=== PATIENT | female | born 1965 | race African-American/Black ===

== ENCOUNTER 2018-12-30 21:22 | Emergency (ER) | payer SELFPAY ==
[~2018-12-30] VITALS: Ht 162.6 cm; Wt 123.4 kg
[2018-12-30 21:29] VITALS: BP 154/83
== END 2018-12-30 21:42 | disposition left against medical advice (07) ==
LOC: ER 21:26
DX: R51 Headache (principal); M54.2 Cervicalgia; Z53.21 Procedure and treatment not carried out due to patient leaving prior to being seen by health care provider

== ENCOUNTER 2018-12-31 17:29 | Inpatient (IN) | payer MEDICAID, OTHER ==
[~2018-12-31] VITALS: Ht 162.6 cm; Wt 122.5 kg
[2018-12-31 18:18] LABS: Basophils # (auto) 0 uL; Eosinophils # (auto) 0.1 uL; Hemoglobin 12.9 g/dL (12.2-16.2); Mean Corpuscular Hemoglobin 25.8 pg (28.0-32.0); Mean Corpuscular Hgb Conc. 31.9 g/dL (32.0-36.0); Monocytes # (auto) 0.4 uL; Neutrophils # (auto) 4.2 uL; Red Blood Cells 4.99 10^6/uL (4.0-5.20)
[2018-12-31 18:20] LABS: Basophils % (auto) 0.3 % (0.0-2.0); Eosinophils % (auto) 1.8 % (0.0-7.0); Hematocrit 40.4 % (36.0-46.0); Lymphocytes # (auto) 1.8 uL; Lymphocytes % (auto) 27.5 % (10.0-50.0); Mean Corpuscular Volume 80.9 fL (80.0-100.0); Monocytes % (auto) 6.4 % (0.0-12.0); Platelet Count (auto) 293 10^3/uL (140-450); Red Cell Distribution Width 17.8 % (11.8-14.3); White Blood Cell 6.6 10^3/uL (4.4-10.8)
[2018-12-31 18:32] LABS: Alanine Aminotransferase 14 U/L (13-56); Albumin 2.9 g/dL (3.4-5.0); Amylase 63 U/L (25-115); Anion Gap 5 (5-15); Aspartate Aminotransferase 12 U/L (15-37); BUN/Creatinine Ratio 11.4; Blood Urea Nitrogen 16 mg/dL (7-18); Calcium 8.4 mg/dL (8.5-10.1); Carbon Dioxide 28 mmol/L (21-32); Chloride 108 mmol/L (98-107); GFR African American 51 mL/min; GFR Non-African American 42 mL/min; Glucose 120 mg/dL (74-106); Lipase 113 U/L (73-393); Potassium 3.7 mmol/L (3.5-5.1); Sodium 141 mmol/L (136-145)
[2018-12-31 18:56] LABS: Alkaline Phosphatase 120 U/L (45-117); Bilirubin, Total 0.2 mg/dL (0.2-1.0)
[2018-12-31 18:57] LABS: Total Protein 8.4 g/dL (6.4-8.2)
[2018-12-31] MEDS ORDERED: cloNIDine HCL 0.1 MG TAB PO ONE (19:00)
[2018-12-31] MEDS ORDERED: HYDROcodone-ACET 10/325MG TAB PO ONE (19:15)
[2018-12-31] MEDS ORDERED: IBUPROFEN 800 MG TAB PO ONE (19:45)
[2018-12-31] MEDS ORDERED: VANCOMYCIN 1GM/250ML 250 ML IV ONE (20:45)
[2019-01-01] VITALS (7 sets, daily range): BP systolic 142–168; BP diastolic 71–92
[2019-01-01] MEDS ORDERED: HYDROcodone-ACET 5/325MG TAB PO PRN
[2019-01-01] MEDS ORDERED: ONDANSETRON HCL 4 MG/2 ML VIAL IV PRN
[2019-01-01] MEDS ORDERED: ACETAMINOPHEN 500 MG TAB PO PRN
[2019-01-01] MEDS ORDERED: MORPHINE SULF INJ 2 MG/ML SYRINGE 1ML IV PRN
[2019-01-01] MEDS ORDERED: cloNIDine HCL 0.1 MG TAB PO PRN (01:30)
--- NOTE | 2019-01-01 01:47 | NUR ---
MS admit from [facility] admitted to MS after SBAR received. Patient oriented to AWAIS ORTIZ, primary RN, unit, room, bed, and unit policies regarding patient care and visiting hours. Patient weighed by bed scale and encouraged to call if they need something. PATIENT ADAMANTLY REFUSED TO ANSWER ADMIT QUESTIONS OR ANY OTHER PROCEDURES AT THIS TIME. REFUSED BELONGINGS TO BE CHECKED. PATIENT WANTS TO GO TO SLEEP. WE WILL CHECK BACK ON HER BEFORE 7 AM PER PATIENT.
--- NOTE | 2019-01-01 07:58 | NUR ---
Patient sitting on bed, refused breakfast, requested turkey sandwich, boiled eggs and avocado. Patient denies pain, stated she wants to go home. Explained to patient we're waiting for the doctor to come over. Patient verbalized understanding.
--- NOTE | 2019-01-01 08:00 | NUR ---
Request for turkey sandwich, boiled eggs and avocado sent via fax to [facility].
[2019-01-01 08:11] LABS: Hematocrit 37.5 % (36.0-46.0); Hemoglobin 11.9 g/dL (12.2-16.2); Mean Corpuscular Hemoglobin 25.5 pg (28.0-32.0); Mean Corpuscular Hgb Conc. 31.6 g/dL (32.0-36.0); Mean Corpuscular Volume 80.7 fL (80.0-100.0); Platelet Count (auto) 261 10^3/uL (140-450); Red Blood Cells 4.65 10^6/uL (4.0-5.20); Red Cell Distribution Width 17.6 % (11.8-14.3); White Blood Cell 6.3 10^3/uL (4.4-10.8)
[2019-01-01 08:13] LABS: Band Neutrophils % (manual) 0; Basophils % (manual) 0 (0.0-2.0); Blast Cells 0; Metamyelocytes % 0; Myelocytes % 0; Promyelocytes % 0; Reactive Lymphocytes 0
[2019-01-01 08:25] LABS: Anion Gap 8 (5-15); BUN/Creatinine Ratio 12.8; Blood Urea Nitrogen 17 mg/dL (7-18); Calcium 7.9 mg/dL (8.5-10.1); Carbon Dioxide 20 mmol/L (21-32); Chloride 112 mmol/L (98-107); GFR African American 54 mL/min; GFR Non-African American 45 mL/min; Glucose 111 mg/dL (74-106); Potassium 4.4 mmol/L (3.5-5.1); Sodium 140 mmol/L (136-145)
[2019-01-01 09:59] LABS: Eosinophils % (manual) 2 (0-7); Lymphocytes % (manual) 32 (10.0-50.0); Monocytes % (manual) 4 (0-12)
[2019-01-01] MEDS ORDERED: HCTZ 25 MG TAB PO SCH (10:00)
--- NOTE | 2019-01-01 10:18 | NUR ---
Apple juice, cranberry juice and franklin crackers provided as requested by the patient. [place] sandwich not available.
--- NOTE | 2019-01-01 10:20 | NUR ---
Patient complained that she's hungry, turkey sandwich has not been given to her yet. Explained to patient I already sent a request via Fax to the [facility]. Patient to call [facility] via [facility].
--- NOTE | 2019-01-01 10:25 | NUR ---
Called [facility]. Phone on voicemail. Left a message of patient's food request.
--- NOTE | 2019-01-01 13:23 | NUR ---
Patient stated she has headache. Tylenol PO given for headache as ordered.
--- NOTE | 2019-01-01 14:27 | NUR ---
Dr. Aldrich at bedside. spoke with the patient. Patient denies abdominal pain, requested doctor's notes to give to her employer, she wants to go back to work on 01/03/2019.
[2019-01-01] MEDS ORDERED: LEVOFLOXACIN 500 MG TAB PO ONE (14:30)
--- NOTE | 2019-01-01 16:00 | NUR ---
Sister came over to sheepskin pickler the patient. Patient refused to sign the discharge papers at this time, stated she will sign it later.
--- NOTE | 2019-01-01 16:54 | NUR ---
Patient asked to have her blood pressure checked before discharge.
--- NOTE | 2019-01-01 16:55 | NUR ---
BP = 168/87, Heart Rate = 75. Patient stated she's not on blood pressure medications at home. Dr. Aldrich made aware. prescribed Metoprolol tartrate 25 mg PO twice a day #60.
--- NOTE | 2019-01-01 17:05 | NUR ---
Explained to patient that as per doctor's orders; she has to have blood pressure monitor, check her blood pressure twice a day before taking Metoprolol 25 mg, if Systolic Blood Pressure is below 120, she has to skip the medication, she has to take down notes on her blood pressure twice a day daily and inform her primary physician on her follow up appointment. Patient verbalized understanding. IV line on the right hand removed, IV catheter intact, pressure dressing applied. Family member at bedside.
--- NOTE | 2019-01-01 17:20 | NUR ---
Patient is discharged. Sister at bedside.
== END 2019-01-01 18:20 | disposition home or self-care (01) | DRG 244 ==
LOC: ER 17:29 → OVERFLOW 01-01 → WEST WING 01-01 03:08
PROVIDERS: ADMIT Nurse Practitioner Family; ATTEND Nurse Practitioner Family
DX: K57.32 Diverticulitis of large intestine without perforation or abscess without bleeding (principal); E44.0 Moderate protein-calorie malnutrition; N18.3 Chronic kidney disease, stage 3 (moderate); I12.9 Hypertensive chronic kidney disease with stage 1 through stage 4 chronic kidney disease, or unspecified chronic kidney disease; E66.9 Obesity, unspecified; Z68.42 Body mass index [BMI] 45.0-49.9, adult; Z88.0 Allergy status to penicillin
CPT/HCPCS: 36415; 74176; 80048; 80053; 82150; 83605; 83690; 84484; 85007; 85025; 85027; 87040; 93005; 96365; G0378

== ENCOUNTER 2019-02-26 12:23 | Emergency (ER) | payer MEDICAID ==
[~2019-02-26] VITALS: Ht 162.6 cm; Wt 122.5 kg
[2019-02-26 16:03] LABS: Basophils # (auto) 0.1 uL; Eosinophils # (auto) 0.1 uL; Nucleated Red Blood Cells % 0.1 %; Red Cell Distribution Width 17.4 % (11.8-14.3)
[2019-02-26 16:05] LABS: Basophils % (auto) 1.1 % (0.0-2.0); Eosinophils % (auto) 1.5 % (0.0-7.0); Hematocrit 39.5 % (36.0-46.0); Hemoglobin 12.5 g/dL (12.2-16.2); Lymphocytes # (auto) 2.8 uL; Lymphocytes % (auto) 37.9 % (10.0-50.0); Mean Corpuscular Hgb Conc. 31.7 g/dL (32.0-36.0); Mean Corpuscular Volume 81.9 fL (80.0-100.0); Monocytes # (auto) 0.5 uL; Monocytes % (auto) 6.4 % (0.0-12.0); Neutrophils # (auto) 3.9 uL; Neutrophils % (auto) 53.1 % (37.0-80.0); Platelet Count (auto) 305 10^3/uL (140-450); Red Blood Cells 4.82 10^6/uL (4.0-5.20); White Blood Cell 7.4 10^3/uL (4.4-10.8)
[2019-02-26 16:28] LABS: Albumin 3.1 g/dL (3.4-5.0); Potassium 4.3 mmol/L (3.5-5.1)
[2019-02-26 16:30] LABS: BUN/Creatinine Ratio 11.5
[2019-02-26] MEDS ORDERED: cloNIDine HCL 0.1 MG TAB PO ONE (16:30)
[2019-02-26 16:34] LABS: Bilirubin, Total 0.4 mg/dL (0.2-1.0); Total Protein 8.3 g/dL (6.4-8.2)
[2019-02-26 20:00] VITALS: BP 152/74
== END 2019-02-26 20:55 | disposition home or self-care (01) ==
LOC: ER 12:23
DX: I10 Essential (primary) hypertension (principal); E11.9 Type 2 diabetes mellitus without complications; Z88.0 Allergy status to penicillin
CPT/HCPCS: 36415; 80053; 82962; 84484; 85025

== ENCOUNTER 2019-09-14 17:50 | Emergency (ER) | payer MEDICAID ==
[~2019-09-14] VITALS: Ht 162.6 cm; Wt 120.2 kg
[2019-09-14 17:55] VITALS: BP 187/84
[2019-09-14 19:04] LABS: Basophils # (auto) 0 uL; Eosinophils # (auto) 0.1 uL; Mean Corpuscular Volume 82.4 fL (80.0-100.0); Neutrophils # (auto) 4.3 uL; Nucleated Red Blood Cells % 0.1 %
[2019-09-14 19:06] LABS: Basophils % (auto) 0.4 % (0.0-2.0); Eosinophils % (auto) 1.8 % (0.0-7.0); Hemoglobin 12.5 g/dL (12.2-16.2); Lymphocytes % (auto) 28.2 % (10.0-50.0); Mean Corpuscular Hemoglobin 26.4 pg (28.0-32.0); Mean Corpuscular Hgb Conc. 32.1 g/dL (32.0-36.0); Monocytes # (auto) 0.5 uL; Monocytes % (auto) 7.8 % (0.0-12.0); Neutrophils % (auto) 61.8 % (37.0-80.0); Platelet Count (auto) 281 10^3/uL (140-450); Red Blood Cells 4.74 10^6/uL (4.0-5.20); Red Cell Distribution Width 17.2 % (11.8-14.3)
[2019-09-14 20:47] LABS: Urine Bacteria FEW /hpf (None Seen); Urine Blood TRACE /uL (Negative); Urine Hyaline Cast FEW /lpf (0 - 2); Urine Specific Gravity 1.013 (1.001-1.035); Urine WBC 2 /hpf (0 - 5)
[2019-09-14] MEDS ORDERED: SIMETHICONE 80 MG CHEWABLE TABLET PO ONE ×2 (21:15→21:30)
== END 2019-09-14 21:33 | disposition home or self-care (01) ==
LOC: ER 17:55
DX: K57.90 Diverticulosis of intestine, part unspecified, without perforation or abscess without bleeding (principal); D25.9 Leiomyoma of uterus, unspecified; R14.0 Abdominal distension (gaseous); Z88.0 Allergy status to penicillin
CPT/HCPCS: 36415; 74176; 81001; 85025

== ENCOUNTER 2020-07-24 19:12 | Inpatient (IN) | payer MEDICAID ==
[~2020-07-24] VITALS: Ht 162.6 cm; Wt 126.8 kg
[2020-07-24 20:46] LABS: Basophils # (auto) 0 10 ^3/uL (0-0.2); Basophils % (auto) 0.5 % (0.0-2.0); Eosinophils # (auto) 0.1 10 ^3/uL (0-0.8); Eosinophils % (auto) 0.7 % (0.0-7.0); Hematocrit 41.3 % (36.0-46.0); Hemoglobin 13.4 g/dL (12.2-16.2); Lymphocytes # (auto) 1.6 10 ^3/uL (0.4-5.4); Lymphocytes % (auto) 21.4 % (10.0-50.0); Mean Corpuscular Hemoglobin 27.2 pg (28.0-32.0); Mean Corpuscular Hgb Conc. 32.5 g/dL (32.0-36.0); Mean Corpuscular Volume 83.8 fL (80.0-100.0); Monocytes # (auto) 0.6 10 ^3/uL (0-1.3); Monocytes % (auto) 7.7 % (0.0-12.0); Neutrophils # (auto) 5.3 10 ^3/uL (1.6-8.6); Neutrophils % (auto) 69.7 % (37.0-80.0); Platelet Count (auto) 344 10^3/uL (140-450); Red Blood Cells 4.93 10^6/uL (4.0-5.20); Red Cell Distribution Width 16.3 % (11.8-14.3); White Blood Cell 7.6 10^3/uL (4.4-10.8)
[2020-07-24 21:04] LABS: Potassium 3.9 mmol/L (3.5-5.1)
[2020-07-24 21:05] LABS: INR 1.07 (0.9-1.15); Partial Thromboplastin Time 32.1 sec (23.0-31.2)
[2020-07-24 21:10] LABS: Albumin 3.3 g/dL (3.4-5.0); BUN/Creatinine Ratio 5.8; Calcium 9.3 mg/dL (8.5-10.1)
[2020-07-24 21:13] LABS: Bilirubin, Total 0.4 mg/dL (0.2-1.0); Total Protein 8.7 g/dL (6.4-8.2)
[2020-07-24] MEDS ORDERED: ENOXAPARIN SOD 120 MG/0.8 ML SYRINGE SC ONE (22:15)
[2020-07-25] VITALS (7 sets, daily range): BP systolic 129–145; BP diastolic 62–80
[2020-07-25] MEDS ORDERED: MORPHINE SULFATE 4 MG/ML SYR/VIAL IV ONE (00:30)
[2020-07-25] MEDS ORDERED: ONDANSETRON HCL 4 MG/2 ML VIAL IV ONE (00:30)
[2020-07-25] MEDS ORDERED: ONDANSETRON HCL 4 MG/2 ML VIAL IV PRN (01:00)
[2020-07-25] MEDS ORDERED: cloNIDine HCL 0.1 MG TAB PO PRN (01:00)
[2020-07-25] MEDS ORDERED: HYDROcodone-ACET 5/325MG TAB PO PRN (01:00)
[2020-07-25] MEDS ORDERED: ACETAMINOPHEN 325 MG TAB PO PRN (01:00)
[2020-07-25] MEDS ORDERED: TEMAZEPAM 15 MG CAP PO PRN (01:00)
--- NOTE | 2020-07-25 03:35 | NUR ---
MS admit from [facility] admitted to tele/MS after SBAR received. Patient oriented to ZACK PANG RN primary RN, unit, room, bed, and unit policies regarding patient care and visiting hours. Patient weighed by bed scale and encouraged to call if they need something. Safety measures maintained by keeping the bed locked in lowest positions, 2 side rails up, personal items and call light within reach. All questions and concerns addressed, patient verbalized understanding.
--- NOTE | 2020-07-25 05:15 | NUR ---
Spoke to Hospitalist Morphine ordered and Soft Mechanical diet. Patient had gastric bypass surgery and has been eating baby food consistency meals.
--- NOTE | 2020-07-25 05:57 | NUR ---
Nelli Hospitalist Patient refusing to take [place] pills and requesting IV Morphine. Diet order also needed. Addendum: 07/25/20 at 0558 by ZACK PANG RN RN Time nelli was [id number]
[2020-07-25] MEDS: MORPHINE SULF INJ 2 MG/ML SYRINGE 1ML IV PRN ×3 (06:30→22:17)
--- NOTE | 2020-07-25 06:42 | NUR ---
Patient refused MRSA swab
--- NOTE | 2020-07-25 07:30 | NUR ---
Assumed care of Pt. She is resting comfortably in bed, having breakfast. Denies any pain at this time.
[2020-07-25] MEDS: ENOXAPARIN SOD 120 MG/0.8 ML SYRINGE SC SCH ×2 (09:50→22:17)
[2020-07-25] MEDS ORDERED: FAMOTIDINE 20 MG TAB PO SCH (10:00)
[2020-07-25] MEDS ORDERED: ACETAMINOPHEN 650 mg PER 20.3 mL UD PO PRN (12:45)
[2020-07-25] MEDS ORDERED: ENALAPRILAT 1.25 MG/ML-1ML VIAL IV PRN (12:45)
--- NOTE | 2020-07-25 18:39 | NUR ---
Pt. is resting comfortably in bed, having dinner. She has been having to call the kitchen on every meal since they keep sending her food she can't eat. She denies any pain at this time.
[2020-07-25 19:30] LABS: Urine Bacteria FEW /hpf (None Seen); Urine Blood Negative /uL (Negative); Urine Mucus FEW (None Seen); Urine Specific Gravity 1.021 (1.001-1.035); Urine WBC 4 /hpf (0 - 5)
--- NOTE | 2020-07-25 19:45 | NUR ---
Opening Shift Note Assumed care of patient, awake and alert. Patient sitting up in bed, talking on the phone. No S/S of distress/SOB or pain. Safety measures maintained by keeping the bed locked in lowest position, 2 side rails up, personal items and call light within reach. Instructed on POC and to call for assist PRN, will continue to monitor for changes Q1hr and PRN.
[2020-07-25] MEDS: PANTOPRAZOLE 40 MG/10 ML VIAL INJ IV SCH (22:17)
[2020-07-26] MEDS: MORPHINE SULF INJ 2 MG/ML SYRINGE 1ML IV PRN ×2 (04:38→20:00)
[2020-07-26 05:00] VITALS: BP 131/70
[2020-07-26] MEDS ORDERED: MULTLIQ36 OR (07:07)
[2020-07-26] MEDS ORDERED: OME20GT PO (07:07)
[2020-07-26] MEDS ORDERED: CALC950T3 PO (07:07)
[2020-07-26] MEDS ORDERED: ACET300T4 PO (07:07)
[2020-07-26] MEDS ORDERED: [UNRECOGNIZED DRUG - CODE] TD (07:07)
[2020-07-26] MEDS ORDERED: CHOL20007 PO (07:07)
[2020-07-26] MEDS ORDERED: BIOT5TAB3 PO (07:07)
[2020-07-26] MEDS ORDERED: HYDR1ELX PO (07:07)
--- NOTE | 2020-07-26 07:30 | NUR ---
Assumed care of Pt. she is sitting comfortably in bed, having breakfast. She continues to request IV fluids, will bring it up to hospitalist when rounding.
[2020-07-26 08:53] LABS: Basophils # (auto) 0 10 ^3/uL (0-0.2); Basophils % (auto) 0.5 % (0.0-2.0); Eosinophils # (auto) 0.1 10 ^3/uL (0-0.8); Eosinophils % (auto) 2.3 % (0.0-7.0); Hematocrit 38.4 % (36.0-46.0); Hemoglobin 12.2 g/dL (12.2-16.2); Lymphocytes # (auto) 1.7 10 ^3/uL (0.4-5.4); Lymphocytes % (auto) 36.6 % (10.0-50.0); Mean Corpuscular Hgb Conc. 31.7 g/dL (32.0-36.0); Mean Corpuscular Volume 85.4 fL (80.0-100.0); Monocytes # (auto) 0.5 10 ^3/uL (0-1.3); Monocytes % (auto) 11.5 % (0.0-12.0); Neutrophils # (auto) 2.3 10 ^3/uL (1.6-8.6); Neutrophils % (auto) 49.1 % (37.0-80.0); Nucleated Red Blood Cells % 0.2 %; Platelet Count (auto) 277 10^3/uL (140-450); Red Cell Distribution Width 16.2 % (11.8-14.3); White Blood Cell 4.6 10^3/uL (4.4-10.8)
[2020-07-26 09:06] VITALS: BP 139/76
[2020-07-26 09:20] LABS: BUN/Creatinine Ratio 8.2; Calcium 9.1 mg/dL (8.5-10.1); Potassium 4.2 mmol/L (3.5-5.1)
[2020-07-26] MEDS: PANTOPRAZOLE 40 MG/10 ML VIAL INJ IV SCH ×2 (09:34→21:50)
[2020-07-26] MEDS: ENOXAPARIN SOD 120 MG/0.8 ML SYRINGE SC SCH ×2 (09:35→21:50)
--- NOTE | 2020-07-26 10:45 | NUR ---
Assumed care of patient Received report from IRAIS Calloway. Patient is awake, alert and oriented x4. Patient is on 3L NC, respirations even and unlabored. Patient has right foot elevated on pillow, denies pain at this time. Reviewed plan of care with patient, patient verbalized understanding. Bed in low and locked position, call light within reach. Will continue to monitor Q1 hour and PRN.
[2020-07-26 13:00] VITALS: BP 126/70
[2020-07-26] MEDS: SOD CHL 0.45% 1,000 ML IV SCH (13:23)
[2020-07-26 17:18] VITALS: BP 133/69
--- NOTE | 2020-07-26 19:00 | NUR ---
Opening Shift Note Assumed care of patient, awake and alert. No S/S of distress/SOB or pain. Instructed on POC and to call for assist PRN, will continue to monitor for changes Q1hr and PRN.
--- NOTE | 2020-07-26 19:05 | NUR ---
Closing Note Report given to night filler RN. No signs or symptoms of distress noted at this time.
[2020-07-26 22:00] VITALS: BP 138/49
[2020-07-27 05:00] VITALS: BP 120/62
[2020-07-27] MEDS: SOD CHL 0.45% 1,000 ML IV SCH (07:15)
[2020-07-27 08:51] VITALS: BP 139/81
[2020-07-27] MEDS: PANTOPRAZOLE 40 MG/10 ML VIAL INJ IV SCH ×2 (09:22→21:37)
[2020-07-27] MEDS: MORPHINE SULF INJ 2 MG/ML SYRINGE 1ML IV PRN ×2 (09:22→21:38)
[2020-07-27] MEDS: ENOXAPARIN SOD 120 MG/0.8 ML SYRINGE SC SCH ×2 (09:22→21:37)
--- NOTE | 2020-07-27 09:52 | NUR ---
Dr. Yost at bed side.
[2020-07-27 12:27] LABS: Basophils # (auto) 0 10 ^3/uL (0-0.2); Basophils % (auto) 0.6 % (0.0-2.0); Eosinophils # (auto) 0.1 10 ^3/uL (0-0.8); Eosinophils % (auto) 1.9 % (0.0-7.0); Hematocrit 37.6 % (36.0-46.0); Lymphocytes # (auto) 1.7 10 ^3/uL (0.4-5.4); Mean Corpuscular Hemoglobin 27.1 pg (28.0-32.0); Mean Corpuscular Hgb Conc. 31.8 g/dL (32.0-36.0); Mean Corpuscular Volume 85.2 fL (80.0-100.0); Monocytes # (auto) 0.5 10 ^3/uL (0-1.3); Monocytes % (auto) 9.4 % (0.0-12.0); Neutrophils # (auto) 2.6 10 ^3/uL (1.6-8.6); Neutrophils % (auto) 53.1 % (37.0-80.0); Nucleated Red Blood Cells % 0.1 %; Platelet Count (auto) 273 10^3/uL (140-450); Red Blood Cells 4.41 10^6/uL (4.0-5.20); Red Cell Distribution Width 15.9 % (11.8-14.3); White Blood Cell 4.9 10^3/uL (4.4-10.8)
[2020-07-27 12:36] VITALS: BP 132/72
[2020-07-27 12:40] LABS: BUN/Creatinine Ratio 9.2; Calcium 8.7 mg/dL (8.5-10.1); Potassium 4.3 mmol/L (3.5-5.1)
[2020-07-27 16:53] VITALS: BP 145/72
--- NOTE | 2020-07-27 16:59 | NUR ---
PT DECLINED P.T. BECAUSE OF RLE PAIN.
[2020-07-27 22:00] VITALS: BP 152/81
[2020-07-28] MEDS: SOD CHL 0.45% 1,000 ML IV SCH ×2 (03:15→23:15)
[2020-07-28 05:00] VITALS: BP 141/62
[2020-07-28 09:04] VITALS: BP 127/83
[2020-07-28] MEDS: PANTOPRAZOLE 40 MG/10 ML VIAL INJ IV SCH ×2 (09:34→22:00)
[2020-07-28] MEDS: ENOXAPARIN SOD 120 MG/0.8 ML SYRINGE SC SCH ×2 (09:34→22:26)
[2020-07-28 13:00] VITALS: BP 135/70
[2020-07-28] MEDS ORDERED: ALLOPURINOL 100 MG TAB PO SCH (13:45)
--- NOTE | 2020-07-28 14:00 | NUR ---
Dr. Subramanian at bed side
--- NOTE | 2020-07-28 14:13 | NUR ---
Nutrition Assessment Notes Please refer to link for full assessment notes. Est Energy needs: [id number] kcals (12-15 kcal/kgBW) Est Protein needs: 103-129 gms/day (0.8-1.0 gm/kgBW) Will continue to monitor and reassess prn. Addendum: 07/28/20 at [address] Amended: Links added.
--- NOTE | 2020-07-28 15:30 | NUR ---
IV removal IV Noted to be leaking. IV DC'd before new access obtained per patients requestwith clean sterile technique, catheter fully intact. Pressure dressing applied to site. Patient tolerated well.
--- NOTE | 2020-07-28 15:31 | NUR ---
PT REQUESTED TO HOLD P.T. UNTIL MRI RESULTS ARE KNOWN.
--- NOTE | 2020-07-28 16:50 | NUR ---
Patient refusing IV insertion, stating, "I know my body and I know I need to hydrate first." Will try again later.
[2020-07-28 17:17] VITALS: BP 146/84
--- NOTE | 2020-07-28 17:46 | NUR ---
Patient refusing IV insertion X2
--- NOTE | 2020-07-28 18:28 | NUR ---
Allopurinol Po ordered to be crushed and given with apple sauce d/t patient stating she cannot take pills. Pill crushed and apple sauce provided. 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
--- NOTE | 2020-07-28 20:55 | NUR ---
Dr. Lockett was on floor. 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 Dr. Lockett took note and will review patient chart and will decide to change or not. Patient notified.
[2020-07-28 22:00] VITALS: BP 153/82
[2020-07-29 05:00] VITALS: BP 133/75
--- NOTE | 2020-07-29 07:30 | NUR ---
Opening Shift Note Assumed care of patient, awake and alert. No S/S of distress/SOB or pain on room air. Instructed on POC and to call for assist PRN, will continue to monitor for changes Q1hr and PRN. Bed in low and locked position, rails up x2, no-slip socks on.
--- NOTE | 2020-07-29 08:00 | NUR ---
PATIENT CONTINUING TO REFUSE IV EDUCATED ON NEED FOR IV PLACEMENT IN CASE OF EMERGENCY AND FO SCHEDULED MEDICATIONS, PATIENT VERBALIZES UNDERSTANDING BUT STILL REFUSING.
[2020-07-29 09:00] VITALS: BP 139/73
[2020-07-29] MEDS: PANTOPRAZOLE 40 MG/10 ML VIAL INJ IV SCH (10:00)
[2020-07-29] MEDS ORDERED: COLCHICINE 0.6 MG CAP PO SCH (10:00)
--- NOTE | 2020-07-29 10:15 | NUR ---
GOUT PER DR COLÓN, OK OPEN AND TO ADMINISTER CAPSULE CONTENTS WITH APPLE SAUCE. PER PHARMACY, DIRECTOR NICU RECOMMENDS THAT THE CAPSULE NOT BE OPENED. PER DR COLÓN, AWARE OF THEIR RECOMMENDATION, WILL SWITCH PATIENT BACK TO ALLOPURINOL 100MG DAILY, TO BE CRUSHED WELL AND ADMINISTERED WITH APPLESAUCE IF PATIENT CAN TOLERATE. WILL EVALUATE THE PATIENT LATER AND TEST URIC ACID AND CT. NO NEW ORDERS.
[2020-07-29] MEDS: ENOXAPARIN SOD 120 MG/0.8 ML SYRINGE SC SCH ×2 (10:19→21:59)
[2020-07-29 13:00] VITALS: BP 157/87
--- NOTE | 2020-07-29 14:15 | NUR ---
DR COLÓN AT [facility] NEW ORDERS ADDED Addendum: 07/29/20 at 1445 by LUCI FRAGA RN RN INFORMED ON NEED TO CHANGE PROTONIX TO ORAL FORM DUE TO NO IV ACCESS AND PATIENTS CONTINUED REFUSAL FOR ACCESS, RECOMMEND PRILOSEC, PATIENT ALSO COMPLAINING OF PAIN, ADDED ORDERS FOR TORADOL IM
[2020-07-29] MEDS: KETOROLAC TROMETH 30 MG/ML 1ML VIAL IM PRN (16:06)
[2020-07-29 16:58] VITALS: BP 137/75
[2020-07-29] MEDS: SOD CHL 0.45% 1,000 ML IV SCH (19:15)
[2020-07-29 22:00] VITALS: BP 126/90
[2020-07-30 05:00] VITALS: BP 156/89
--- NOTE | 2020-07-30 07:50 | NUR ---
opening note Assumed care of patient from NOC RN. Patient is AOX4 no s/s of distress noted. Bed is in lowest locked position, side rails up x2 and call light within reach. Updated patient on plan of care and patient verbalized understanding. Will continue to monitor q1hr and PRN.
[2020-07-30 08:41] VITALS: BP 139/88
[2020-07-30] MEDS ORDERED: ALLOPURINOL 100 MG TAB PO SCH (10:00)
[2020-07-30] MEDS ORDERED: OMEPRAZOLE 20MG/10ML ORAL SUSP PO SCH (10:00)
--- NOTE | 2020-07-30 10:00 | NUR ---
IV Patient refusing IV. Educated patient on the importance of having an IV patient still refusing.
--- NOTE | 2020-07-30 10:34 | NUR ---
patient refused medication patient refusing Allopurinol. Educated patient regarding importance of taking medication, patient verbalized understanding but still refusing. Patient also stated "I will wait to take my medications until after I talk to Dr. Aldrich."
--- NOTE | 2020-07-30 11:14 | NUR ---
ellieian rounding Dr. Aldrich at bedside. MD updated patient on plan of care. Patient verbalized understanding. New orders received, will follow thorough.
[2020-07-30] MEDS ORDERED: ONDANSETRON ODT 4 MG TAB PO ONE (12:00)
[2020-07-30] MEDS: ENOXAPARIN SOD 120 MG/0.8 ML SYRINGE SC SCH (12:52)
--- NOTE | 2020-07-30 12:52 | NUR ---
patient refusing medication. Patient stated "I am not having heart burn i dont want to take the omeprazole." Educated patient regarding the importance of taking her medications as ordered, patient still refusing.
[2020-07-30] MEDS: KETOROLAC TROMETH 30 MG/ML 1ML VIAL IM PRN (12:57)
[2020-07-30 13:00] VITALS: BP 158/87
[2020-07-30] MEDS: SOD CHL 0.45% 1,000 ML IV SCH (15:15)
--- NOTE | 2020-07-30 15:54 | NUR ---
assessment Patient has no post discharge needs identified at this time. Addendum: 07/30/20 at 1555 by Yumiko HERNANDEZ Amended: Links added.
[2020-07-30 17:00] VITALS: BP 138/90
--- NOTE | 2020-07-30 17:34 | NUR ---
Discharge Discharge instructions given as ordered. Encourage to follow up with PMD as instructed. All questions and concerns addressed. Patient verbalized understanding. Patient had no IV access, patient was refusing and patient was med-surg status. Patient taken to vehicle via wheelchair with all personal belongings, accompanied by staff member. No distress noted at time of departure.
== END 2020-07-30 17:35 | disposition home or self-care (01) | DRG 197 ==
LOC: ER 19:12 → OVERFLOW 19:13 → WEST WING 07-25 03:35
PROVIDERS: ADMIT Nurse Practitioner; ATTEND Internal Medicine
DX: I82.411 Acute embolism and thrombosis of right femoral vein (principal); E66.01 Morbid (severe) obesity due to excess calories; Z68.42 Body mass index [BMI] 45.0-49.9, adult; I12.9 Hypertensive chronic kidney disease with stage 1 through stage 4 chronic kidney disease, or unspecified chronic kidney disease; N18.30 Chronic kidney disease, stage 3 unspecified; M10.9 Gout, unspecified; Z98.84 Bariatric surgery status; Z88.0 Allergy status to penicillin; Z79.899 Other long term (current) drug therapy; E44.1 Mild protein-calorie malnutrition
CPT/HCPCS: 36415; 73700; 80048; 80053; 81001; 85025; 85610; 85730; 93971; 96372; 96374; 96375; C9113; G0378; J1885; J2405; Q0162

== ENCOUNTER 2021-03-16 16:18 | Emergency (ER) | payer MEDICAID ==
[~2021-03-16] VITALS: Ht 162.6 cm; Wt 87.1 kg
[~2021-03-16 16:18] MED LIST: ACET300T4 PO; BIOT5TAB3 PO; CALC950T3 PO; CHOL20007 PO; HYDR1ELX PO; MULTLIQ36 OR; OME20GT PO; [UNRECOGNIZED DRUG - CODE] TD
[2021-03-16 17:07] LABS: Basophils # (auto) 0 10 ^3/uL (0-0.2); Basophils % (auto) 0.4 % (0.0-2.0); Eosinophils # (auto) 0.1 10 ^3/uL (0-0.8); Eosinophils % (auto) 1.1 % (0.0-7.0); Hematocrit 36.8 % (36.0-46.0); Hemoglobin 12.3 g/dL (12.2-16.2); Lymphocytes # (auto) 2.4 10 ^3/uL (0.4-5.4); Lymphocytes % (auto) 40.3 % (10.0-50.0); Mean Corpuscular Hemoglobin 27.7 pg (28.0-32.0); Mean Corpuscular Hgb Conc. 33.4 g/dL (32.0-36.0); Mean Corpuscular Volume 82.9 fL (80.0-100.0); Monocytes # (auto) 0.5 10 ^3/uL (0-1.3); Monocytes % (auto) 7.5 % (0.0-12.0); Neutrophils % (auto) 50.7 % (37.0-80.0); Nucleated Red Blood Cells % 0.1 %; Platelet Count (auto) 316 10^3/uL (140-450); Red Blood Cells 4.44 10^6/uL (4.0-5.20); Red Cell Distribution Width 16.4 % (11.8-14.3)
[2021-03-16 17:28] LABS: Alanine Aminotransferase 17 U/L (13-56); Albumin 3.5 g/dL (3.4-5.0); Anion Gap 6 (5-15); Aspartate Aminotransferase 19 U/L (15-37); BUN/Creatinine Ratio 11.3; Blood Urea Nitrogen 13 mg/dL (7-18); Calcium 8.8 mg/dL (8.5-10.1); Carbon Dioxide 28 mmol/L (21-32); Chloride 107 mmol/L (98-107); GFR African American 63 mL/min; GFR Non-African American 52 mL/min; Glucose 76 mg/dL (74-106); Potassium 3.8 mmol/L (3.5-5.1); Sodium 141 mmol/L (136-145)
[2021-03-16 17:32] LABS: Alkaline Phosphatase 124 U/L (45-117); Bilirubin, Total 0.3 mg/dL (0.2-1.0); Total Protein 8.9 g/dL (6.4-8.2)
[2021-03-17 02:56] VITALS: BP 168/90
== END 2021-03-17 03:01 | disposition home or self-care (01) ==
LOC: ER 16:32
DX: I10 Essential (primary) hypertension (principal); R41.82 Altered mental status, unspecified; R42 Dizziness and giddiness; Z88.0 Allergy status to penicillin
CPT/HCPCS: 36415; 70450; 71045; 80053; 84484; 85025; 93005